=== PATIENT | male | born 1960 | race Caucasian/White ===

== ENCOUNTER 2016-10-31 14:36 | Emergency (ER) | payer BC ==
[2016-10-31 16:39] VITALS: BP 148/88
--- NOTE | 2016-10-31 17:18 | UC ---
Headache HPI - HPI Summary HPI Summary: PATIENT PRESENTS TO WITH CC OF SINUS PRESSURE AND FRONTAL LINDSAY X 5 DAYS. DENIES PREVIOUS SINUS INFECTIONS AND DENIES RHINORRHEA, OR CONGESTION BUT NOTES TO A RECENT URI. DENIES CURRENT COUGH, CHEST PAIN, PRESSURE, NEURO SYMPTOMS, GAIT OR VISUAL DISTURBANCE. HE IS OTHERWISE HEALTHY AND TAKES A STATIN FOR HLD. HE HAS NEVER HAD ANYTHING LIKE THIS BEFORE. HE HAS TRIED TO TAKE MOTRIN WITHOUT RELIEF. HE STATES HE HAD A MEDICATION HE PICKED UP AT A [employer] AND WORKED VERY WELL. PAIN COMES ON AFTER WAKING UP AT 930A AND LASTS ALL DAY. - History Of Current Complaint Chief Complaint: UCGeneralIllness Stated Complaint: SINUS Time Seen by Provider: 10/31/16 16:56 Hx Obtained From: Patient Onset/Duration: Sudden Onset Onset Of Symptoms: Gradual Initially Headache Was: Initial Pain Scale(0-10)= - 4 Currently Pain Is: Current Pain Scale(0-10)= - 4 Pain Scale Used: 0-10 Numeric Timing: Constant Character: Dull, Pressure Location of Headache: Frontal Aggravating Factor: Nothing Allevating Factors: Nothing Associated Signs And Symptoms: Positive: Negative - Risk Factors SAH Risk Factors: Negative Meningitis Risk Factors: Negative SDH Risk Factors: Negative Temporal Arteritis Risk Factors: - Allergies/Home Medications Allergies/Adverse Reactions: Allergies Allergy/AdvReac Type Severity Reaction Status Date / Time No Known Allergies Allergy Verified 10/31/16 16:39 PMH/Surg Hx/FS Hx/Imm Hx Previously Healthy: Yes Endocrine History Of: Denies: Diabetes, Thyroid Disease Cardiovascular History Of: Denies: Cardiac Disorders, Hypertension, Pacemaker/ICD Respiratory History Of: Denies: COPD, Asthma GI/ History Of: Denies: Ulcer - Surgical History Surgical History: Yes Surgery Procedure, Year, and Place: RIGHT ROTATOR CUFF REPAIR X 2, BICEPS TENDON REPAIR , DISLOCATED LEFT SHOULDER,UMBILLICAL HERNIA REPAIR,VASECTOMY - Social History Occupation: Employed Full-time Lives: With Family Alcohol Use: Occasionally Substance Use Type: None Smoking Status (MU): Never Smoked Tobacco Review of Systems Constitutional: Negative Eyes: Negative ENT: Other - FRONTAL SINUS PRESSURE AND PAIN OVER BRIDGE OF NOSE Respiratory: Negative Cardiovascular: Negative Motor: Negative Neurovascular: Negative Neurological: Headache Psychological: Negative All Other Systems Reviewed And Are Negative: Yes Physical Exam Triage Information Reviewed: Yes Appearance: Well-Appearing, No Pain Distress, Well-Nourished Vital Signs: Initial Vital Signs Temp 97.8 F 10/31/16 16:36 Pulse 68 10/31/16 16:36 Resp 16 10/31/16 16:36 BP 148/88 10/31/16 16:36 Pulse Ox 100 10/31/16 16:36 Vital Signs Reviewed: Yes Eye Exam: Normal Eyes: Positive: Conjunctiva Clear ENT: Positive: Pharynx normal, TMs normal, Other: - PAIN OVER BRIDGE OF NOSE AND FRONTAL SINUS PRESSURE ON PALPATION Dental Exam: Normal Neck exam: Normal Neck: Positive: Supple, Nontender, No Lymphadenopathy Respiratory Exam: Normal Respiratory: Positive: Chest non-tender, Lungs clear Musculoskeletal Exam: Normal Musculoskeletal: Positive: Strength Intact Psychological Exam: Normal Psychological: Positive: Normal Response To Family, Age Appropriate Behavior Skin Exam: Normal Headache Course/Dx - Course Course Of Treatment: PATIENT TREATED FOR SINUSITIS OF FRONTAL LOBE. PRESCRIPTION SENT FOR AUGMENTIN AND FIORICET FOR LINDSAY AND SINUSITIS. PATIENT AGREES TO FOLLOW UP AND RETURN WITH WORSENING SYMPTOMS. HE DENIES VISUAL DISTURBANCES, CHEST PAIN OR PRESSURE, NEURO SYMPTOMS. PATIENT AGREES WITH DISCHARGE. - Differential Dx/Diagnosis Differential Diagnosis/HQI/PQRI: Epidural Hematoma, Subdural Hematoma, Migraine , Sinus Headache, Tension Headache Provider Diagnoses: SINUS HEADACHE Discharge - Discharge Plan Condition: Stable Disposition: HOME Prescriptions: Amoxicillin/Clavulanate TAB* [Augmentin TAB 875*] 875 mg PO BID #14 tab MDD 2 Butalb/Acetamin/Caff TAB* [Fioricet TAB*] 1 tab PO Q8H PRN #12 tab MDD 3 PRN Reason: Headache Patient Education Materials: Sinusitis (ED) Referrals: Shamika Jaramillo MD [Primary Care Provider] - Additional Instructions: FOLLOW UP WITH PCP TAKE AUGMENTIN TWICE DAILY FOR 7 DAYS IF SYMPTOMS DO NOT IMPROVE, PLEASE COME BACK TO RIGHT AWAY OR GO TO THE ED FIOIRCET NEEDED FOR HEADACHE
== END 2016-10-31 17:15 | disposition home or self-care (01) ==
LOC: UCCORT 14:36
DX: R51 Headache (principal)
CPT/HCPCS: 99212; G0463

== ENCOUNTER 2019-03-29 13:08 | Emergency (ER) | payer BC ==
--- OUTSIDE RECORDS SUMMARY | 2019-03-29 13:18 | XMS REPORT | Continuity of Care Document ---
:1960 External Reference #:[id number] Author Name Shamika Jaramillo MD Address [address] [place] [id number] Care Team Providers Name Role Phone River Ferguson MD - Orthopaedic Care Team Information Tool Filer Hand [phone] Surgery Mitch Burgess - Gastroenterology Care Team Information Tool Filer Hand Problems Active Problems Provider Date Elevated blood-pressure reading without Shamika Jaramillo MD Onset: 2012 diagnosis of hypertension Impotence of organic origin Shamika Jaramillo MD Onset: 01/26/2013 FH: Diabetes mellitus Shamika Jaramillo MD Onset: 12/11/2011 Vitamin D deficiency Shamika Jaramillo MD Onset: 12/05/2010 Benign neoplasm of colon Shamika Jaramillo MD Onset: 12/05/2010 Family history of breast cancer Shamika Jaramillo MD Onset: 12/05/2010 Family history of ischemic heart disease Shamika Jaramillo MD Onset: 2010 Mixed hyperlipidemia Shamika Jaramillo MD Onset: 07/06/2008 Pure hypercholesterolemia Onset: 09/08/2015 Essential hypertension Shamika Jaramillo MD Onset: 03/26/2019 Localized, primary osteoarthritis of the hand Shamika Jaramillo MD Onset: Obstructive sleep apnea syndrome Shamika Jaramillo MD Onset: 03/25/2018 Social History Type Date Description Comments Sex Unknown ETOH Use Occasionally consumes alcohol Tobacco Use Start: Unknown Patient has never smoked Recreational Drug Use Denies Drug Use Smoking Status Reviewed: 03/26/19 Patient has never smoked Exercise Type/Frequency Exercises regularly Golf in summer, teaches phys ed, coaches. uses elliptical 4-5 times per week; counselled 150min per week, 10k steps per day Allergies, Adverse Reactions, Alerts Description No Known Drug Allergies Medications Active Medications SIG Qnty Indications Ordering Date Provider Lisinopril 1 by mouth daily in 90tabs I10 Edgar, 03/26/2019 10mg the morning MD Shamika Tablets Atorvastatin Calcium 1 by mouth every 90tabs E78.2 Edgar, 03/26/2019 day MD Shamika 40mg Tablets Sildenafil Citrate take 1 tablet by 6tabs N52.9 Edgar, 03/25/2018 mouth if needed 1 MD Shamika 100mg Tablets hour prior to intercourse Aspirin Enteric 1 by mouth every E78.2 Edgar, 03/06/2015 Coated Adult Low day MD Shamika Strength 81mg Tablets DR Vitamin D3 1 Tabs PO Daily Edgar, 08/29/2014 1000Unit MD Shamika Chewtabs Ibuprofen 1 by mouth three 90tabs Edgar, 07/06/2008 800mg times a day with MD Shamika Tablets food as needed Medications Administered in Office Medication SIG Qnty Indications Ordering Provider Date Depo Medrol 80 MG Shamika Jaramillo MD 01/26/2019 Injection Immunizations CPT Code Status Date Vaccine Reaction Lot # [id number] Given 05/16/2018 Flu Vaccine NOS given at pharmacy 84993 Given 03/25/2018 Tdap (Adacel) Ages 7 And Above [id number] Only Q2035 Given 04/22/2017 Afluria Imunization Q2035 Given 05/02/2016 Afluria Imunization Q2035 Given 05/19/2015 Afluria Imunization 73848 Given 03/28/2014 Influenza Virus Vaccine,Quadrivalent,Split,Prese rv Free, 0.5mL,[place] [address] Given 05/29/2013 Afluria Or Fluvirin Flu Vac Intramuscular 31140 Given 06/05/2010 Afluria Or Fluvirin Flu Vac Intramuscular 60459 Given 07/06/2008 Tdap (Adacel) Ages 7 And Above Only Q2039 Refused 03/26/2019 Flu Vaccine NOS aware can get at pharmacy 09396 Refused 03/26/2019 Shingrix (Shingles) Zoster aware can get at pharmacy Vaccine HZV, Recombinant, Subunit, Adj Q2039 Refused 03/25/2018 Flu Vaccine NOS [place] get [place] [facility] [place] [facility] [address]16 Refused 03/25/2018 Shingrix (Shingles) Zoster Vaccine HZV, Recombinant, Subunit, Adj Vital Signs Date Vital Result Comment 03/26/2019 3:47pm Weight 219.00 lb Heart Rate 60 /min BP Systolic 138 mmHg BP Diastolic 90 mmHg BP Systolic Recheck 160 mmHg LEFT arm recheck BP Diastolic Recheck 90 mmHg LEFT arm recheck Respiratory Rate 18 /min Height 72 inches 6'0" BMI (Body Mass Index) 29.7 kg/m2 01/26/2019 3:35pm Weight 212.00 lb Heart Rate 78 /min BP Systolic 132 mmHg BP Diastolic 76 mmHg Respiratory Rate 16 /min Height 72 inches 6'0" BMI (Body Mass Index) 28.7 kg/m2 Results Test Date Facility Test Result H/L Range Note Lipid 03/19/2019 [facility] Cholesterol 260 mg/dL High 50-199 1 Triglycerides 173 mg/dL 30-200 HDL 56 mg/dL 29-71 2 Chol/ HDL Ratio 4.7 ratio 4.0-6.7 VLDL 35 mg/dL High 2-29 LDL (Calc) 170 mg/dL High 20-99 3 Comprehensive Met Panel[facility] 03/19/2019 [facility] Sodium 140 mmol/L 135- 146 4 Potassium 4.5 mmol/L 3.5-5.2 Chloride# 105 mmol/L 97-110 5 Carbon Dioxide 29 mmol/L 24-34 Calcium 9.4 mg/dL 8.5-10.5 6 Glucose 110 mg/dL High 70-105 BUN 23 mg/dL 6-26 Creatinine 1.2 mg/dL 0.5-1.4 Total Protein 6.3 g/dL 6.0-8.0 Albumin 4.2 g/dL 3.6-4.9 Globulin 2.1 g/dL 2.0-3.5 A/G Ratio 2.0 Ratio 1.0-2.2 Total Bilirubin 0.6 mg/dL 0.1-1.3 Alkaline Phosphatase 95 U/L 24-140 Alt 28 U/L 3-42 Ast 21 U/L 8-42 Anion Gap 6 mmol/L 5-15 7 Female Egfr 50 Low >60 8 Male Egfr 67 >60 9 Laboratory test finding 03/19/2019 [facility] CPK 205 U/L High 12-199 CBC With Auto Diff 03/19/2019 [facility] WBC 4.6 K/uL 4.1-11.0 RBC 4.84 M/uL 4.60-6.10 Hemoglobin 14.9 gm/dL 13.5-18.0 Hematocrit 44.1 % 41.0-53.0 MCV 91.2 fL 80.0-97.0 MCH 30.7 pg 27.0-32.0 MCHC 33.7 g/dL 32.0-36.0 RDW 13.6 % 11.5-14.5 PLT Count 181 K/ul 140-400 MPV 9.7 FL 7.1-10.7 Neutrophil 65.3 % 35.0-75.0 Lymphocyte 20.5 % 16.0-52.0 Monocyte 10.6 % High 2.0-10.0 Eosinophil 2.7 % 0.0-5.0 Basophil 0.9 % 0.0-4.0 Abs Neutrophils 3.0 K/uL 2.1-8.0 Abs Lymphocytes 0.9 K/uL 0.8-5.5 Abs Monocytes 0.5 K/uL 0.1-1.0 Abs Eosinophils 0.1 K/uL 0.0-0.5 Abs Basophils 0.0 K/uL 0.0-0.3 Laboratory test finding 03/19/2019 [facility] PSA 0.430 ng/mL 0.000-4.000 10 1 before visit 02/2019 2 Per NCEP ATP III Guidelines: Results lower than 40 mg/dL are suggestive of increased risk for coronary artery disease. Results > or = to 60 mg/dL are considered a negative risk factor. 3 Per NCEP ATP III Guidelines: Normal Population <130 Patients with medical conditions: CHD/DM Optimal: <100 Borderline high: 130-159 High: 160-189 Very high: >189 4 Updated reference range on new analyzer 5 Updated reference range on new analyzer 6 Updated reference range 11-25-2018 7 Updated Reference Range 8 Concerning GFR Guidelines for Americans: Normal function or mild renal disease, if clinically at risk: >/= 60 mL/min Moderately decreased: 30-59 Severely decreased: 15-29 Renal failure: <15 There is reduced accuracy above 60ml/min/1.73 m squared, but the numeric value may be clinically useful in the near 60 range 9 Concerning GFR Guidelines: Normal function or mild renal disease, if clinically at risk: >/= 60 mL/min Moderately decreased: 30-59 Severely decreased: 15-29 Renal failure: <15 There is reduced accuracy above 60ml/min/1.73 m squared, but the numeric value may be clinically useful in the near 60 range Glomerular Filtration Rate (GFR) is estimated based on the CKD-EPI equation, which assumes a steady state for creatinine as recommended by the National Kidney Disease Education Program in conjunction with the National Institutes of Health and the National Kidney Foundation. Clinical conditions in which it may be necessary to measure GFR by using clearance methods include extremes of age and body size, severe malnutrition or obesity, diseases of skeletal muscle, paraplegia or quadriplegia, vegetarian diet, rapidly changing kidney function, and calculation of the dose of potentially toxic drugs that are excreted by the kidneys. 10 Beginning 09/22/06 PSA values assayed at [facility] [employer] uses chemiluminescence methodology manufactured by [employer] for use on the DXI analyzer. Values obtained with different assay methods or kits can not be used interchangeably. Serum PSA measurement is not an absolute test for malignancy. The PSA value should be used in conjunction with information available from clinical evaluation and other diagnostic procedures. Procedures Date Code Description Status 01/26/2019 23063 Inject/Drain Joint/Bursa Major W/Out Ultrasound Completed Guidance 02/25/2014 70824784 Colonoscopy Completed Medical Devices Description No Information Available Encounters Type Date Location Provider Dx Diagnosis Office Visit 01/26/2019 [facility] Shamika Jaramillo, M25.511 Pain in RIGHT 3:15p shoulder Z68.28 Body mass index (BMI) 28.0-28.9, adult Office Visit 09/29/2018 3:00p [facility] Shamika Jaramillo MD E78.2 Mixed hyperlipidemia R03.0 Elevated blood-pressure reading, w/o diagnosis of htn N52.9 Male erectile dysfunction, unspecified M19.049 Primary osteoarthritis, unspecified hand Z11.4 Encounter for screening for human immunodeficiency virus Z12.5 Encounter for screening for malignant neoplasm of prostate Z68.27 Body mass index (BMI) 27.0-27.9, adult Assessments Date Code Description Provider 03/26/2019 I10 Essential (primary) hypertension Shamika Jaramillo MD 03/26/2019 E78.2 Mixed hyperlipidemia Shamika Jaramillo MD 03/26/2019 Z00.01 Encounter for general adult medical Shamika Jaramillo MD examination with abnormal findings 03/26/2019 G47.33 Obstructive sleep apnea (adult) (pediatric) Shamika Jaramillo MD 03/26/2019 M19.049 Primary osteoarthritis, unspecified hand Shamika Jaramillo MD 03/26/2019 N52.9 Male erectile dysfunction, unspecified Shamika Jaramillo MD 03/26/2019 Z83.3 Family history of diabetes mellitus Shamika Jaramillo MD 03/26/2019 Z80.3 Family history of malignant neoplasm of Shamika Jaramillo MD breast 03/26/2019 Z82.49 Family history of ischemic heart disease and Shamika Jaramillo MD other diseases of the circulatory system 03/26/2019 K63.5 Polyp of colon Shamika Jaramillo MD 03/26/2019 G56.03 Carpal tunnel syndrome, bilateral upper limbs Shamika Jaramillo MD 03/26/2019 Z13.31 Encounter for screening for depression Shamika Jaramillo MD 03/26/2019 Z68.29 Body mass index (BMI) 29.0-29.9, adult Shamika Jaramillo MD 03/19/2019 E78.2 Mixed hyperlipidemia Shamika Jaramillo MD 03/19/2019 E78.2 Mixed hyperlipidemia Schedule, Laboratory 03/19/2019 Z12.5 Encounter for screening for malignant Shamika Jaramillo MD neoplasm of prostate 03/19/2019 Z12.5 Encounter for screening for malignant Schedule, Laboratory neoplasm of prostate 03/19/2019 E78.2 Mixed hyperlipidemia [facility] 03/19/2019 Z12.5 Encounter for screening for malignant [facility] neoplasm of prostate 01/26/2019 M25.511 Pain in RIGHT shoulder Shamika Jaramillo MD 01/26/2019 Z68.28 Body mass index (BMI) 28.0-28.9, adult Shamika Jaramillo MD 09/29/2018 E78.2 Mixed hyperlipidemia Shamika Jaramillo MD 09/29/2018 R03.0 Elevated blood-pressure reading, without Shamika Jaramillo MD diagnosis of hypert 09/29/2018 N52.9 Male erectile dysfunction, unspecified Shamika Jaramillo MD 09/29/2018 M19.049 Primary osteoarthritis, unspecified hand Shamika Jaramillo MD 09/29/2018 Z11.4 Encounter for screening for human Shamika Jaramillo MD immunodeficiency virus [Hi 09/29/2018 Z12.5 Encounter for screening for malignant Shamika Jaramillo MD neoplasm of prostate 09/29/2018 Z68.27 Body mass index (BMI) 27.0-27.9, adult Shamika Jaramillo MD Plan of Treatment Future Appointment(s):04/27/2019 8:15 am - Schedule, Laboratory at [facility]2018 4:00 pm - Shamika Jaramillo MD at [facility]03/26/2019 - Shamika Jaramillo MDI10 Essential (primary) hypertensionNew Medication:Lisinopril 10 mg - 1 by mouth daily in the morningNew Xrays:Calcium Score Heart Scan, Ordered: Comments:HTN, high bp at Dr Hagan. Discussed lifestyle issues of regular exercise 30min/d, weight loss,no added salt diet, keep alcohol under 2 per day Initiate medication. Reviewed options of HCTZ/diuretic, Atenolol/ bblocker, lisinopril/acei and their various side effects and costs.initiate acei ,lisinopril, advised side effects of elevated potassium, cough and risk of renals effects. May take up to 4 weeks to see full effects of med.Pt to advised to monitor home bps and call if not improving, rechkin 1m.Follow up:next visit in 4-5 weeks for oc15 fu new htn meds and chol meds nonfasting labs 5 day sprior .E78.2 Mixed hyperlipidemiaNew Medication:Atorvastatin Calcium 40 mg - 1 by mouth every dayNew Labs:Lipid, Scheduled: 04/27/19Comprehensive Met Panel- [facility], Scheduled: 04/27/19[facility], Scheduled: 04/27/19New Xrays:Calcium Score Heart Scan, Ordered: 03/26/19Comments:high cholreviewed AHA/ACC 2018 risk assessment and guidelines, suggests intermediate risk status at 16.6 %Modifiers: He has new Hypertension, no diabetes, no smoking history, he has significant family history of cardiovascular disease. His baseline chol was total 300+ and LDL 200+Moderate intensity statins are recommended per risk assessment however, he may benefit from highest intensity statin therapy. INcrease atorvatatin to 40mg and assess response, remindded risks to effect muscle and liver, fu in 4-6 weeks. Aspirin 81mg is recommended. Advised pt to consider doing a CT calcium score, program through [facility], CT scan with risks for radiation exposure and chance to find another abnormality that needs a workup, but benefit of identifying calcium load that would suggest coronary artery disease and potential opportunity for early treatment. Advised insurance coverage is variable Recommend: Low fat ( under 30gm), low chol diet ( under 300mg per day chol)focus on lean meat, nonfat 1% dairy, increased veg and fruit, whole grains consume healthy omega-3 fats with each meal, avoiding transfats. weight lossexercise build to 150min per week or 10,000 steps per day Since this is considered low risk, no aspirin is recommended at this time. Reviewed signs and symptoms of cardiovascular disease.recheck periodically to monitor dietary olqmghgxtV60.01 Encounter for general adult medical examination with abnormal findingsComments:Well adult male.Imms reviewedtdap 03/25/18 no reason for pneumovaxrecommend shingrix series consider hep a for travelrecommend annual flu vax Recommend periodic ophtho examination for eye health. Recommend colon cancer screening as discussed.Discussed prostate cancer. screening.Recommend periodic dental exam. Healthy lifestyle recommendations: Encouraged healthy diet with meats simply prepared, freshfruits and veg when able also simply prepared, whole grains, 3 dairies per day non fat. Adults should take [place] additional vit d 600 iu beyond their food sources, with a meal with meat/fat/ oil. Encouraged daily exercise 30 - 60 min daily, moderate to vigorous.Encouraged 3 qrts total fluid per day, with most being water, and more for sweaty exercise. [employer] 7-8 hours of sleep at night. Limit youralcohol to & lt; 2 per day. Don't smoke or use tobacco. Following a healthy lifestyle will reduce your risk for cardiovascular disease, the leading cause of , as well as many other illnesses.G47.33 Obstructive sleep apnea (adult) (pediatric) Comments:sleep apnea stable. pt reports he is sleeping well through the night with no day time symptoms. Declined cpap Oral device was suggested he has not done this, discussed can do referral if desired. Cautioned if not adequately treated, low oxygen levels can lead to sock folder stroke or heart attack, as well as sleepiness that can lead to motor vehicle and other accidents. sleep on your side, don't drive if vcsocK62.049 Primary osteoarthritis, unspecified handComments:ulysses right middle finger pip joint, discussed referral to hand surgeon Dr Talavera for joint replacement if has continuous pain and sxs. may have steroid injections as needed.N52.9 Male erectile dysfunction, unspecifiedComments:impotence. Pt with good results from meds. Reviewed side effects. Call prn concerns, continue meds.Z83.3 Family history of diabetes mellitusComments:[facility] history diabetes--Please monitor for symptoms of diabetes, such as polydipsia(thirst/drinking alot), polyuria( urinating alot, ulysses at night), fatigue, or concerns. Encourage healthy diet, daily exercise, weight loss to get to egjbumA12.3 Family history of malignant neoplasm of breastComments:family history breast canceradvised pt 08/05 cancers is found in men, there is increased risk for him to have cancer. If other family members develop cancer, consider testing within [facility] for brca gene, the gene associated with cancer, or consider screening.Z82.49 Family history of ischemic heart disease and other diseases of the circulatory systemNew Xrays: Calcium Score Heart Scan, Ordered: 03/26/19Comments:family history ischemic heart diseaserecommend weight loss to get to normal weightadvised extra saltavoidanceadvised diet with consumption of fresh meat/veg/fruit simply prepared, whole graines, avoiding processed foods, mediterranean based, oil sources with omega 3 and 6 fatty acids ie fish/ oliveoil/almonds/walnuts/ground flax seed, eat a serving dailymoderate to vigorous exercise 30 - 60 min perday, with strength and flexibility training low dose enteric coated 81mg aspirin is recommended reviewed signs and symptoms of heart attack and stroke, take asa and call 911 if vyolctP90.5 Polyp of colonComments:Pt with h/o colon polyps, last colonoscopy 2013Next colonoscopy due [address] burgess Please call forblood in stool, changes in bowel habits, any concerns. Colonoscopy can still miss polyps.Referral:Mitch Burgess, OhkoklvminwotkgeL39.03 Carpal tunnel syndrome, bilateral upper limbsComments:carpal tunnel. try to avoid the position that causes sxs, try weight loss consider wrist splints if sxs worsen, next step is nerve conduction ortho referral for injection therapy or surgery.if you develop muscle loss or weakness, then surgery may be your best jjzlstH25.31 Encounter for screening for depressionComments:screen negative for pwhjsanmvxG61.29 Body mass index (BMI) 29.0-29.9, adultComments:Recommend regular exercise and reduced calorie diet for weight loss Cautioned risks for developing sleep apnea , arthritis, hypertension, premature cardiovascular disease, diabetes. Functional Status Description No Information Available Mental Status Description No Information Available Referrals Refer to Reason for Referral Status Appt Date Mitch Burgess over due colonoscopy Created [address] [place] [address] [phone]
[2019-03-29 13:45] VITALS: BP 147/89
--- NOTE | 2019-03-29 13:56 | UC ---
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 - History of Current Complaint Chief Complaint: UCBackPain Stated Complaint: LOWER BACK PAIN Time Seen by Provider: 03/29/19 13:47 Hx Obtained From: Patient Onset/Duration: Gradual Onset, Lasting Days, Still Present, Worse Since Timing: Lasting Days Severity Initially: Mild Severity Currently: Moderate Pain Intensity: 8 Back Pain: Is Discrete @ - left upper buttock, Radiates To - left mid buttock Character: Dull, Aching, Throbbing, Spasmodic, Stiffness Aggravating Factor(s): Movement, Lifting, Bending, Walking Alleviating Factor(s): Nothing Associated Signs And Symptoms: Positive: Negative - Risk Factors AAA Risk Factors: Negative TAD Risk Factors: Negative Cauda Equina Risk Factors: Negative Epidural Abscess Risk Factors: Negative - Allergies/Home Medications Allergies/Adverse Reactions: Allergies Allergy/AdvReac Type Severity Reaction Status Date / Time No Known Allergies Allergy Verified 03/29/19 13:40 Home Medications: Home Medications Atorvastatin* [Lipitor 20 MG*] 20 mg PO DAILY 03/29/19 [History Confirmed ] Ibuprofen TAB* [Motrin TAB* 800 MG] 800 mg PO Q8H PRN 03/29/19 [History Confirmed 03/29/19] oxyCODONE TAB* [Roxycodone TAB 5 mg*] 5 mg PO ONCE 03/29/19 [History Confirmed 03/29/19] PMH/Surg Hx/FS Hx/Imm Hx Previously Healthy: Yes Endocrine History: Dyslipidemia - Surgical History Surgical History: Yes Surgery Procedure, Year, and Place: ROTATOR CUFF REPAIR 4 ON RIGHT, 1 ON LEFT SHOULDERS; bicept tendon right,hernia,vasectomy - Family History Known Family History: Positive: Cardiac Disease - Social History Occupation: Employed Full-time Lives: With Family Alcohol Use: Occasionally Substance Use Type: None Smoking Status (MU): Never Smoked Tobacco Have You Smoked in the Last Year: No - Immunization History Vaccination Up to Date: Yes Review of Systems All Other Systems Reviewed And Are Negative: Yes Constitutional: Positive: Negative Skin: Positive: Negative Eyes: Positive: Negative ENT: Positive: Negative Respiratory: Positive: Negative Cardiovascular: Positive: Negative Gastrointestinal: Positive: Negative Genitourinary: Positive: Negative Motor: Positive: Decreased ROM - left lower back buttock is painful that radiates through left mid buttock Neurovascular: Positive: Negative Musculoskeletal: Positive: Arthralgia, Myalgia Neurological: Positive: Negative Psychological: Positive: Negative Is Patient Immunocompromised?: No Physical Exam Triage Information Reviewed: Yes Appearance: Well-Appearing Vital Signs: Initial Vital Signs Temp 98.5 F 03/29/19 13:37 Pulse 98 03/29/19 13:37 Resp 18 03/29/19 13:37 BP 147/89 03/29/19 13:37 Pulse Ox 100 03/29/19 13:37 Vital Signs Reviewed: Yes Eye Exam: Normal ENT Exam: Normal Dental Exam: Normal Respiratory: Positive: No respiratory distress Musculoskeletal Exam: Normal Musculoskeletal: Positive: Strength Intact, ROM Intact, Other: - left sciatic nerve tenderness Neurological Exam: Normal Psychological Exam: Normal Skin Exam: Normal Back Pain Course/Dx - Differential Dx/Diagnosis Differential Diagnosis/HQI/PQRI: Cauda Equina Syndrome, Strain, Sprain Provider Diagnosis: Left-sided low back pain with sciatica Discharge ED - Sign-Out/Discharge Documenting (check all that apply): Patient Departure All imaging exams completed and their final reports reviewed: No Studies - Discharge Plan Condition: Stable Disposition: HOME Prescriptions: Cyclobenzaprine TAB* [Flexeril 10 MG TAB*] 10 mg PO Q12H PRN #15 tab PRN Reason: Pain - Mild predniSONE TAB* [Deltasone 10 MG TAB*] 30 mg PO DAILY #12 tab Patient Education Materials: Sciatica (ED), Lower Back Exercises (ED) Referrals: Shamika Jaramillo MD [Primary Care Provider] - If Needed - Billing Disposition and Condition Condition: STABLE Disposition: Home
== END 2019-03-29 14:17 | disposition home or self-care (01) ==
LOC: UCCORT 13:08
DX: M54.42 Lumbago with sciatica, left side (principal); E78.5 Hyperlipidemia, unspecified
CPT/HCPCS: 99212; G0463